=== PATIENT | female | born 1970 | race Caucasian/White ===

== ENCOUNTER 2023-12-13 14:35 | Emergency (ER) | payer OTHER, SELFPAY ==
[2023-12-13] VITALS (8 sets, daily range): BP systolic 105–137; BP diastolic 63–88
--- NOTE | 2023-12-13 15:29 | ED.GENMED ---
History of Present Illness
General
Chief Complaint: Musculo-Skeletal Complaint
Source: patient
Exam Limitations: none
Time Seen by Provider: 12/13/23 15:01
Nursing documentation reviewed up to this point in time: agreed with
Travel History
Have you had any contact with someone who has COVID-19?: No
Do you have any symptoms of coronavirus? Fever > 100 degrees, chills, cough, shortness of breath, sore throat, loss of taste or smell, muscle aches, or headache?: No
History of Present Illness
History of Present Illness:
Patient is a 53-year-old odwhy-daqu-lczlbzqh female who presents to the emergency department complaining of left upper extremity pain. Patient fell getting out of shower and may have passed out. Patient had surgery 4 days ago and had an
oophorectomy. Patient admits to not drinking that much and took a pain medication this morning. Patient denies chest pain, shortness of breath or palpitations. Patient denies striking her head or, neck or back pain. Patient states her left hand
went into spasm and she seemed to have numbness. Patient's had multiple surgeries on her left shoulder but she feels that is fine. Patient's abdomen is still sore from the surgery. Patient denies any lower extremity pain.
Past History
Past History
ED Past Medical History: Other (Kidney stones, anxiety/depression)
ED Past Surgical History: Gynecological and Orthopedic
Social History
Tobacco: Former smoker
Review of Systems
Review of Systems
All Other Systems: ROS reviewed and negative except as documented in HPI and ROS
Constitutional: Reports fatigue; Denies fever or chills
Respiratory: Reports no symptoms
Cardiac: Reports syncope (Questionable); Denies chest pain, diaphoresis or palpitations
ABD/GI: Reports abdominal pain; Denies nausea, vomiting, diarrhea or constipated
: Reports no symptoms
Musculoskeletal: Reports joint pain; Denies neck pain or back pain
Skin: Reports no symptoms
Neurological: Reports no symptoms
Endocrine: Reports no symptoms
Phy Exam
Physical Exam
Physical Exam:
Physical Exam
General: moderate distress distress, alert and appropriate, well nourished, well hydrated
HENT: Normocephalic and atraumatic, supple with no lymphadenopathy, no thyromegaly
Eyes: Clear sclera, conjuctiva without injection
Heart: Regular rhythm and rate. No S3, S4. No murmur.
Lungs: No respiratory distress, no stridor, lung sounds clear and equal bilaterally, chest wall symmetrical and nontender
Abdomen: Soft, mild tenderness without guarding or rebound in the area of surgical site, BS good
Neuro: Alert and oriented x 3, CN II - XII intact, no motor focality, no cerebellar dysfunction
Skin: no rash
Psychiatric: well kept. interactive and cooperative
Extremities: No edema, cyanosis. Good and equal peripheral pulses. Left wrist diffusely tender and increases with any range of motion. Neurovascularly and tendons intact. Well-healed surgical wounds of the left shoulder
Musculoskeletal: No cervical, thoracic or lumbar spine tenderness
Course
Orders/Labs/Results
Orders:
Orders
12/13/23 14:43
Wrist, Left 3 Views CR [CR Wrist - Left Min 3 Views] Urgent
Comment:
Reason For Exam: pain after a fall.
12/13/23 15:26
0.9% Sodium Chloride 1000 ml [Nss] 1,000 ml IV BOLUS
HYDROmorphone [Dilaudid] 1 mg IV NOW STA
Ondansetron Injectable [Zofran] 4 mg IV NOW STA
12/13/23 15:39
Univ. Wrist w/ Thumb Left-Tx ONCE
12/13/23 16:10
Propofol [Diprivan] 20 ml .ROUTE .STK-MED
12/13/23 16:38
Wrist, Left 2 Views CR [CR Wrist - Left Min 2 Views] Stat
Comment:
Reason For Exam: s/p reduction
Vital Signs
Initial and Last Documented VS:
Initial Vital Signs
Temp Pulse Resp BP Pulse Ox
98.7 F 77 1 137/70 99
12/13/23 14:38 12/13/23 14:38 12/13/23 14:38 12/13/23 14:38 12/13/23 14:38
Last Documented Vital Signs
Temp Pulse Resp BP Pulse Ox
98.2 F 80 18 108/88 99
12/13/23 16:45 12/13/23 16:45 12/13/23 16:45 12/13/23 16:45 12/13/23 16:45
Procedures
Moderate Sedation
ASA Risk Score: Class II
Chart and allergies reviewed: Yes
Consent for anesthesia obtained: Yes
Time out completed (validating right patient & procedure): Yes
History of difficult intubation: No
Airway free of obstruction: Yes
Patient has a gag reflex: Yes
Patient is able to open mouth: Yes
Patient has no dentures: Yes
Patient has no loose teeth: Yes
Medication administered by Provider during Moderate Sedation: IV Propofol (mg)
Total dose administered: 130
Time drug administered: 16:31
Start Time: 16:31
Stop Time: 16:48
Splinting/Sling Placement
Left Wrist:
Procedure completed by: barrera
Pre-splint extermity exam: neurovascular intact
Type of splint: sugar-tong
Splint material: fiberglass
Splint checked by provider?: Yes
Normal distal neurovascular exam?: Yes
Joint/Fracture Reduction
Left Wrist:
Indication for procedure:: displaced fracture
Procedure completed by: barrera
Consent form signed: Yes
Joint reduced: with anesthesia sedation
Anesthesia/sedation: Moderate sedation
Injury was: closed
Further treatement: needs further treatment
Capillary Refill: normal
Normal distal neurovascular exam?: Yes
*Radiology
Radiology exam reviewed: preliminary read by ED provider (Comminuted nondisplaced radial fracture)
*Pulse Oximetry
Patient hypoxic: no
*EKG
Interpreted by ED Provider?: NA
*Developer Advocate Interpretation
Rate: Developer Advocate- N/A
*Critical Care Note
Total Time (30-74mins, 75-104mins- exclusive of procedures): Not Applicable
ED Attending Note
-
Portions of this chart may have been created with voice recognition software.� Occasional wrong word or��sound alike� substitutions may have occurred due to the inherent limitations of voice recognition software.
Discharge Plan
Departure
Patient Disposition: Home (Routine Discharge)
Date of Disposition: 12/13/23
Time of Disposition: 16:55
Patient with high blood pressure during this ER visit?: No
Condition: Fair
Covid-19: Not Applicable
Discharge Problem:
Closed fracture of distal end of left radius
Instructions: Wrist Fracture (DC), Moderate Sedation in Adults (DC), Using Cold for Pain, Splint Care
Prescriptions:
New
hydromorphone [Dilaudid] 2 mg tablet
2 mg PO Q4H PRN (Reason: Pain) Qty: 14 0RF
No Action
clonazepam 0.5 MG tablet
1 mg PO HS
cyclobenzaprine 10 MG tablet
10 mg PO HS
acetaminophen [Tylenol Extra Strength] 500 MG tablet
1,000 mg PO Q6HPRN PRN (Reason: PAIN)
ibuprofen 200 MG tablet
600 - 800 mg PO PRN PRN (Reason: PAIN)
oxycodone 5 MG tablet
5 mg PO Q4HPRN PRN (Reason: PAIN)
bupropion HCl [Wellbutrin SR] 200 MG tablet sustained-release 12 hr
200 mg PO BID
Thc Cream
1 applic topical DAILY
loratadine-pseudoephedrine 240 MG/10 MG tablet extended release 24 hr
1 tab PO DAILY
nrzxtkrqkrtdf-GZ-yaakyqnnperlw [Mucinex Sinus-Max Cng-Pain(DM)] 1 EACH capsule
1 ea PO DAILY
Referrals:
Naveen Whelan MD [Family Provider] -
Claudio Butler MD [Active] - Call in 1-3 days for appt
Activity Restrictions/Additional Instructions:
Continue present medications and therapy
Interventions
Interventions:
*Risk Screen - Suicide Last Done: 12/13/23 15:03
*General Assessment Last Done: 12/13/23 15:03
*Neglect/Abuse Screening Last Done: 12/13/23 15:03
*ED COVID-19 Vaccine History Last Done: 12/13/23 15:03
ED-Musculoskeletal Assessment Last Done: 12/13/23 15:03
Discharge Date and Time
Print Language: MARSHALLESE
[2023-12-13] MEDS: NSS 1000 IV (15:34)
[2023-12-13] MEDS: ZOFRAN 4 MG IV (15:36)
[2023-12-13] MEDS: DILAUDID 1 MG IV ×2 (15:36→17:02)
== END 2023-12-13 17:40 | disposition home or self-care (01) ==
LOC: EMR 14:35
PROVIDERS: EMERGENCY PHYSICIAN Emergency Medicine; FAMILY PHYSICIAN Family Medicine
DX: S52.592A Other fractures of lower end of left radius, initial encounter for closed fracture (principal); W18.2XXA Fall in (into) shower or empty bathtub, initial encounter; Y93.E1 Activity, personal bathing and showering; Z87.442 Personal history of urinary calculi; Z87.891 Personal history of nicotine dependence
CPT/HCPCS: 25605; 99285; 99152; 96374; 96375; 96361; 96376; 73100; 73110

== ENCOUNTER 2023-12-18 02:08 | Emergency (ER) | payer OTHER, SELFPAY ==
[2023-12-18 02:14] VITALS: BP 144/90
[2023-12-18] MEDS: DILAUDID 1 MG IV ×2 (02:29→03:55)
--- NOTE | 2023-12-18 02:35 | ED.GENMED ---
History of Present Illness
General
Chief Complaint: Post Operative Problem(s)
Source: patient
Exam Limitations: none
Time Seen by Provider: 12/18/23 02:20
Travel History
Have you had any contact with someone who has COVID-19?: No
Do you have any symptoms of coronavirus? Fever > 100 degrees, chills, cough, shortness of breath, sore throat, loss of taste or smell, muscle aches, or headache?: No
History of Present Illness
History of Present Illness:
See MDM
Past History
Past History
ED Past Medical History: Other (Kidney stones, anxiety/depression)
ED Past Surgical History: Gynecological and Orthopedic
Social History
Tobacco: Former smoker
Alcohol: None
Phy Exam
Physical Exam
Physical Exam:
See MDM
Course
Orders/Labs/Results
Orders:
Orders
12/18/23 02:25
HYDROmorphone [Dilaudid] 1 mg IV NOW STA
12/18/23 03:52
HYDROmorphone [Dilaudid] 1 mg IV NOW STA
Ketorolac [Toradol] 30 mg IV NOW STA
Vital Signs
Initial and Last Documented VS:
Initial Vital Signs
Temp Pulse Resp BP Pulse Ox
98.5 F 106 26 144/90 96
12/18/23 02:14 12/18/23 02:14 12/18/23 02:14 12/18/23 02:14 12/18/23 02:14
Last Documented Vital Signs
Temp Pulse Resp BP Pulse Ox
98.5 F 106 26 144/90 96
12/18/23 02:14 12/18/23 02:14 12/18/23 02:14 12/18/23 02:14 12/18/23 02:14
MDM/Problems Addressed
Differential Diagnosis Includes:
HPI and MDM Narrative:
53-year-old female presenting with worsening left arm pain. Patient had wrist fracture repair yesterday. Patient states the nerve block is wearing off. She took her Dilaudid medicine at home with no relief. She is complaining of uncontrolled pain
When examined the patient, there was distal and proximal swelling to the splint. I removed the splint and the pain immediately improved. The hand remains neurovascularly intact will provide pain medicine and resplint more loosely
Physical exam
General: Mildly uncomfortable
HEENT: protecting airway
Neck: appears supple
CV: No evidence of cyanosis
Resp: No accessory muscle use
Abd: Non-distended
Extremities: Left hand surgical incisions are clean and intact. Distal extremity neurovascular intact. Cap refill is in 2 seconds.
Neuro: alert
Psych: Normal affect
Skin: Intact
Problems Addressed including Acute and Chronic Conditions affecting care:
1. Postsurgical pain
Acuity: acute
Prognosis: stable
Details: Likely in the setting of postsurgical swelling. The splint was reapplied more loosely which improved pain drastically
Updates
After Dilaudid, patient states the pain is starting to recur. Will give another dose in addition to Toradol. She feels comfortable going home and will call her surgeon in the morning
Differential Diagnosis (but not limited to): Postsurgical pain, edema
Testing considered: Repeat x-ray but she denies trauma
Drug therapy (if applicable): OTC meds, please see d/c instruction regarding Rx drugs
Amount and/or Complexity of Data Reviewed
Clinical info obtained from: Patient
External data reviewed: N/A
Labs I independently reviewed (but not limited to): N/A
Radiology: N/A
Pulse Ox: not hypoxic
EKG independently reviewed: N/A
Grants Analyst: N/A
Critical Care: N/A
Risk of Complication:
Social Determinants of health: Good social support
Discussed with other providers: N/A
Escalation of Care includes Admit/Obs: After being observed in the Emergency Department, pt stable for discharge.
Occasional wrong word or 'sound a like' substitutions may have occurred due to the inherent limitations of voice recognition software. Read the chart carefully and recognize, using context, where substitutions have occurred.
*Critical Care Note
Total Time (30-74mins, 75-104mins- exclusive of procedures): Not Applicable
ED Attending Note
-
Portions of this chart may have been created with voice recognition software.� Occasional wrong word or��sound alike� substitutions may have occurred due to the inherent limitations of voice recognition software.
Discharge Plan
Departure
Patient Disposition: Home (Routine Discharge)
Date of Disposition: 12/18/23
Time of Disposition: 03:53
Patient with high blood pressure during this ER visit?: Yes
Discharge Problem:
Post-operative pain
Instructions: Postoperative Pain (DC), BLOOD PRESSURE
Prescriptions:
No Action
clonazepam 0.5 MG tablet
1 mg PO HS
cyclobenzaprine 10 MG tablet
10 mg PO HS
acetaminophen [Tylenol Extra Strength] 500 MG tablet
1,000 mg PO Q6HPRN PRN (Reason: PAIN)
ibuprofen 200 MG tablet
600 - 800 mg PO PRN PRN (Reason: PAIN)
oxycodone 5 MG tablet
5 mg PO Q4HPRN PRN (Reason: PAIN)
bupropion HCl [Wellbutrin SR] 200 MG tablet sustained-release 12 hr
200 mg PO BID
Thc Cream
1 applic topical DAILY
loratadine-pseudoephedrine 240 MG/10 MG tablet extended release 24 hr
1 tab PO DAILY
implzefghdvas-EA-vmltbqmyyqgvq [Mucinex Sinus-Max Cng-Pain(DM)] 1 EACH capsule
1 ea PO DAILY
hydromorphone [Dilaudid] 2 mg tablet
2 mg PO Q4H PRN (Reason: Pain) Qty: 14 0RF
hydromorphone 4 mg tablet
2 - 4 mg PO Q6H PRN (Reason: Pain) Qty: 10 0RF
Referrals:
Ceci Jameson MD [Family Provider] -
Activity Restrictions/Additional Instructions:
Please return for any worsening symptoms.
You may return at any time if you have further concerns.
Please call your surgeon tomorrow and explain your symptoms.
Thank you for choosing [facility].
Interventions
Interventions:
*Risk Screen - Suicide Last Done: 12/18/23 02:14
*General Assessment Last Done: 12/18/23 02:14
*Neglect/Abuse Screening Last Done: 12/18/23 02:14
ED- Fall Risk Assessment Last Done: 12/18/23 02:14
*ED COVID-19 Vaccine History Last Done: 12/18/23 02:14
ED-Skin Assessment Last Done: 12/18/23 02:37
Discharge Date and Time
Print Language: ISRAELI
[2023-12-18] MEDS: TORADOL 30 MG IV (03:55)
== END 2023-12-18 04:02 | disposition home or self-care (01) ==
LOC: EMR 02:08
PROVIDERS: EMERGENCY PHYSICIAN Student in an Organized Health Care Education/Training Program; FAMILY PHYSICIAN Family Medicine
DX: G89.18 Other acute postprocedural pain (principal); M79.602 Pain in left arm; M25.432 Effusion, left wrist; R03.0 Elevated blood-pressure reading, without diagnosis of hypertension; F41.9 Anxiety disorder, unspecified; F32.A Depression, unspecified; Z87.891 Personal history of nicotine dependence; Z87.442 Personal history of urinary calculi; Z88.1 Allergy status to other antibiotic agents; Z91.048 Other nonmedicinal substance allergy status
CPT/HCPCS: 99284; 96374; 96375; 96376

== ENCOUNTER 2025-02-07 21:58 | Inpatient (IN) | payer OTHER, SELFPAY ==
[2025-02-07] VITALS (8 sets, daily range): BP systolic 101–136; BP diastolic 51–82; BMI 22.6; BMI 21.7
--- NOTE | 2025-02-07 16:14 | ED.GENMED ---
History of Present Illness
General
Chief Complaint: Flank Pain
Source: patient and spouse
Exam Limitations: none
Time Seen by Provider: 02/07/25 16:05
History of Present Illness
History of Present Illness:
54-year-old female relatively sudden onset of left flank pain 3 to 4 hours ago. Some nausea. History of kidney stones. Some ongoing recurring urinary symptoms and recurring UTI. Last on antibiotics 2 weeks ago. Currently has no dysuria or
frequency but does note foul-smelling urine. No fever or chills
Past History
Past History
ED Past Medical History: Other (Kidney stones, anxiety/depression)
ED Past Surgical History: , Gynecological and Orthopedic
Social History
Tobacco: Former smoker
Alcohol: None
Review of Systems
Review of Systems
All Other Systems: Not applicable
Constitutional: Denies fever or chills
Respiratory: Reports no symptoms
ABD/GI: Reports no symptoms
Phy Exam
Physical Exam
Physical Exam:
GENERAL: Alert and oriented in no apparent distress
EYE: Orbits normal.
NECK: Supple
CARDIAC: Regular rate and rhythm without any obvious murmurs.
LUNGS: Clear breath sounds,normal
ABDOMEN: Soft, without focal tenderness or distention. No CVA tenderness
NEUROLOGICAL: Alert and oriented , grossly non-focal
SKIN: Warm and dry, no rash or lesion, no discoloration, skin intact.
MUSCULOSKELETAL: No edema,no deformity.Good color
PSYCH: Normal and appropriate interaction..
Course
Orders/Labs/Results
Orders:
Orders
02/07/25 16:12
CT Abd/pel Without Iv Or Oral Urgent
Comment:
Reason For Exam: Left flank pain
IV Insert/Care/Rem.- Treatment PRN
0.9% Sodium Chloride 500 ml [Nss] 500 ml IV BOLUS
Ketorolac [Toradol] 15 mg IV NOW STA
02/07/25 16:22
Basic Metabolic Panel Urgent
Complete Blood Count/With Diff Urgent
Urinalysis Reflex To Culture Urgent
Date Specimen was Collected: 02/07/25
Time Specimen was Collected: 16:18
Urine Microscopic Reflex Cult Urgent
Urine Culture Urgent
DONTA Source: U
Specimen Description:
Date Specimen was Collected: 02/07/25
Time Specimen was Collected: 16:18
02/07/25 18:30
Cefepime HCl [Maxipime] 2,000 mg IV NOW STA
HYDROmorphone [Dilaudid] 0.5 mg IV NOW STA
Abnormal Lab Results
02/07/25
16:22
RBC 3.60 L 10^6/uL
(4.20-5.40)
Hgb 11.2 L g/dL
(12.0-16.0)
Hct 33.5 L %
(37.0-47.0)
MCH 31.1 H pg
(27.0-31.0)
Abs Immat Gran (auto) 0.1 H 10^3/uL
(0-0.05)
Absolute Neuts (auto) 7.4 H 10^3/uL
(1.4-6.5)
Absolute Lymphs (auto) 1.1 L 10^3/uL
(1.2-3.4)
Neutrophils % 79.2 H %
(42.2-75.2)
Lymphocytes % 12.3 L %
(20.5-51.1)
BUN 21 H mg/dl
(7-17)
Glucose 100 H mg/dl
(70-99)
Ur Occult Blood Reflex 3+ A
(Negative)
Leukocyte Esterase Rfl 3+ A
(Negative)
Urine RBC 3-6 A /HPF
(0-2)
Urine Bacteria (Reflex) Many A
(Negative)
Urine Albumin (Reflex) 2+ A
(Neg - Trace)
02/07/25 16:22
02/07/25 16:22
Vital Signs
Initial and Last Documented VS:
Initial Vital Signs
Temp Pulse Resp BP Pulse Ox
98.6 F 84 17 136/82 99
02/07/25 15:49 02/07/25 15:49 02/07/25 15:49 02/07/25 15:49 02/07/25 15:49
Last Documented Vital Signs
Temp Pulse Resp BP Pulse Ox
98.6 F 84 17 136/82 99
02/07/25 15:49 02/07/25 15:49 02/07/25 15:49 02/07/25 15:49 02/07/25 15:49
MDM/Problems Addressed
Differential Diagnosis Includes:
Differential would include kidney stone, early pyelonephritis, kidney stone plus pyelonephritis, diverticulitis, nonspecific. Workup in progress
*Critical Care Note
Total Time (30-74mins, 75-104mins- exclusive of procedures): Not Applicable
Data Reviewed
Review of Other/Old Records Reveals: Labs, Records, Radiology Studies and Testing
Update Note
Update Note:
0... Discussed with urology. With possible secondary infection referred to hospitalist for admission. Urology aware of CT findings and urine findings
ED Attending Note
-
Portions of this chart may have been created with voice recognition software.� Occasional wrong word or��sound alike� substitutions may have occurred due to the inherent limitations of voice recognition software.
Discharge Plan
Departure
Patient Disposition: Admit
Date of Disposition: 02/07/25
Time of Disposition: 18:58
Presentation/result/management discussed w/ accepting /DO: Norberto
Discharge Problem:
9 mm obstructing left ureteral kidney st, Possible secondary UTI
Prescriptions:
No Action
clonazepam 0.5 MG tablet
1 mg PO HS
cyclobenzaprine 10 MG tablet
10 mg PO HS
acetaminophen [Tylenol Extra Strength] 500 MG tablet
1,000 mg PO Q6HPRN PRN (Reason: PAIN)
ibuprofen 200 MG tablet
600 - 800 mg PO PRN PRN (Reason: PAIN)
oxycodone 5 MG tablet
5 mg PO Q4HPRN PRN (Reason: PAIN)
bupropion HCl [Wellbutrin SR] 200 MG tablet sustained-release 12 hr
200 mg PO BID
Thc Cream
1 applic topical DAILY
loratadine-pseudoephedrine 240 MG/10 MG tablet extended release 24 hr
1 tab PO DAILY
kcgruikimgujv-TL-uyxnfljjevlku [Mucinex Sinus-Max Cng-Pain(DM)] 1 EACH capsule
1 ea PO DAILY
hydromorphone [Dilaudid] 2 mg tablet
2 mg PO Q4H PRN (Reason: Pain) Qty: 14 0RF
hydromorphone 4 mg tablet
2 - 4 mg PO Q6H PRN (Reason: Pain) Qty: 10 0RF
Referrals:
Ceci Jameson MD [Family Provider]
Interventions
Interventions:
*Risk Screen - Suicide Last Done: 02/07/25 15:50
*General Assessment Last Done: 02/07/25 15:50
*Neglect/Abuse Screening Last Done: 02/07/25 15:50
*ED COVID-19 Vaccine History Last Done: 02/07/25 15:50
MF-Ofrcun-Hymrdnesqv Assessment Last Done: 02/07/25 16:36
Discharge Date and Time
Print Language: BURKINAN
[2025-02-07] MEDS: TORADOL 15 MG IV ×2 (16:23→21:21)
[2025-02-07] MEDS: NSS 500 IV (16:24)
[2025-02-07 16:33] LABS: Urine Albumin 2+ (Neg - Trace); Urine Bilirubin Negative (Negative); Urine Character Clear (Clear); Urine Color Yellow; Urine Glucose Negative (Negative); Urine Ketone Negative (Negative); Urine Leukocyte 3+ (Negative); Urine Nitrite Negative (Negative); Urine Occult Blood 3+ (Negative); Urine Specific Gravity 1.015 (<1.030); Urine Urobilinogen Negative (Neg - 1+)
[2025-02-07 16:40] LABS: % Basophils 0.3 % (0-2); % Eosinophils 1.2 % (0-6); % Immature Granulocytes 0.5 % (0-0.5); % Lymphocytes 12.3 % (20.5-51.1); % Monocytes 6.5 % (1.7-9.3); % Neutrophils 79.2 % (42.2-75.2); Absolute Eosinophils 0.1 10^3/uL (0-0.7); Absolute Immature Granulocytes 0.1 10^3/uL (0-0.05); Absolute Lymphocytes 1.1 10^3/uL (1.2-3.4); Absolute Monocytes 0.6 10^3/uL (0.1-0.6); Absolute Neutrophils 7.4 10^3/uL (1.4-6.5); Hematocrit 33.5 % (37.0-47.0); Hemoglobin 11.2 g/dL (12.0-16.0); Mean Corp Hgb Conc. 33.4 g/dL (33.0-37.0); Mean Corpuscular Hgb 31.1 pg (27.0-31.0); Mean Corpuscular Volume 93.1 fL (81.0-99.0); Mean Platelet Volume 8.8 fL (7.4-10.4); Nucleated Red Blood Cells % 0 %; Platelet Count 286 10^3/uL (130-400); Red Cell Dist. Width 13.1 % (11.5-14.5); White Blood Cell Count 9.3 10^3/uL (4.8-10.8)
[2025-02-07 16:41] LABS: Blood Urea Nitrogen 21 mg/dl (7-17); Calcium 9.7 mg/dl (8.4-10.2); Carbon Dioxide 26 mmol/L (22-30); Chloride 107 mmol/L (98-107); Glucose 100 mg/dl (70-99); Potassium 4.2 mmol/L (3.5-5.1); Sodium 137 mmol/L (135-145); eGFR > 60.00
[2025-02-07 17:48] LABS: Urine Bacteria Many (Negative); Urine Mucus Many; Urine Triple Phosphate Crystal Present
[2025-02-07] MEDS: DILAUDID 0.5 MG IV (18:38)
[2025-02-07] MEDS: MAXIPIME 2000 MG IV (18:39)
[2025-02-07] MEDS: PROTONIX IV 40 MG IV (19:29)
--- NOTE | 2025-02-07 19:38 | CONS.URO ---
Consultation
-
Date/Time Consultation Requested: 02/07/2025 190
Date/Time Consultation Performed: 02/07/2025 193
Requesting Provider: ED
Performing Provider: Norberto
Reason for Consultation: Left Ureteral Stone
Medical History
History of Present Illness
ED note: '54-year-old female relatively sudden onset of left flank pain 3 to 4 hours ago. Some nausea. History of kidney stones. Some ongoing recurring urinary symptoms and recurring UTI. Last on antibiotics 2 weeks ago. Currently has no
dysuria or frequency but does note foul-smelling urine. No fever or chills'
long-term patient of Dr corbin at [facility]
prior h/o urteroscopy for stone
Past Medical History
Past Medical History: Psychiatric (anxiety/depression; recurrent UTI's, kidney stones)
Past Surgical History: Gynocological and Urological
Social History
Tobacco: Non-smoker
Drug: None
Personal:
Living: With Family
Family History
Family History: Reviewed & Not Pertinent
Allergies/Home Medications
Allergies
Allergy/AdvReac Type Severity Reaction Status Date / Time
amoxicillin Allergy rash/hives Verified 02/07/25 15:49
seasonal Allergy nasal Uncoded 02/07/25 15:49
congestion
Home Medications
�Medication �Instructions �Recorded �Confirmed �Type
bupropion HCl 200 mg tablet,12 hr 200 mg PO BID 02/07/25 02/07/25 History
sustained-release
clonazepam 0.5 mg tablet 1 mg PO HS 02/07/25 02/07/25 History
cranberry 2 tab PO HS 02/07/25 02/07/25 History
diphenhydramine 25 1 tab PO HS 02/07/25 02/07/25 History
mg-acetaminophen 500 mg tablet
(Tylenol PM Extra Strength)
estradiol 0.01% (0.1 mg/gram) 1 applic vaginal SUWE@2200 02/07/25 02/07/25 History
vaginal cream
finasteride 5 mg tablet 5 mg PO HS 02/07/25 02/07/25 History
methenamine-m.blue-sod 1 tab PO BIDPRN PRN urinary 02/07/25 02/07/25 History
phos-p.august-hyosc 81.6 mg-10.8 discomfort
mg-40.8 mg tablet (Uretron D-S)
nortriptyline 10 mg capsule 10 mg PO HS 02/07/25 02/07/25 History
Physical Exam
Vital Signs
Vital Signs
Temp Pulse Resp BP Pulse Ox
98.6 F 84 17 126/73 99
02/07/25 15:49 02/07/25 15:49 02/07/25 15:49 02/07/25 19:00 02/07/25 15:49
Lab / Testing Results
Laboratory Results
02/07/25 16:22
02/07/25 16:22
Physical Exam
adult female on ED gurfort supply
General: No Apparent Distress and Comfortable
HEENT: Normocephalic
Respiratory: Non Labored Respirations
GI: Soft, Non Tender and Non Distended
Genito-urinary: No Costovertebral Tend
Skin: Warm
Neuro: Awake, Alert and Oriented
Psych: Calm and Intact Judgement
Assessment / Plan
-
Left Ureteral Stone: 9 mm, proximal
possible UTI
Rec: empiric antibiosis
posted for OR in AM -- consent signed in presence of at bedside
Data Reviewed
-
CT Scan: Image personally visualized and interpreted
Lab Data: Labs Reviewed
Old Records: Reviewed
[2025-02-07] MEDS: LEVAQUIN 500 MG PO (20:19)
[2025-02-07] MEDS: LOVENOX 40 MG SC (20:20)
[2025-02-07] MEDS: FLOMAX 0.4 MG PO (21:20)
[2025-02-08] VITALS (9 sets, daily range): BP systolic 97–134; BP diastolic 50–87
--- NOTE | 2025-02-08 00:02 | PTCARENOTE ---
Pt arrived to room 419-02. Pt ambulated from stretcher to bed. Pt AAOx3, VSS. Pt oriented to room, call coles placed within reach.
[2025-02-08] MEDS: WELLBUTRIN SR (12 hour sustained release) 200 MG PO ×2 (00:08→10:10)
[2025-02-08] MEDS: PAMELOR 10 MG PO (00:08)
[2025-02-08] MEDS: KLONOPIN 1 MG PO (00:09)
[2025-02-08] MEDS: NORMOSOL-R/PLASMALYTE-A 1000 IV (00:09)
[2025-02-08] MEDS: TORADOL 15 MG IV ×2 (04:25→09:41)
[2025-02-08] MEDS: TYLENOL 650 MG PO (06:16)
[2025-02-08] MEDS: ZOFRAN 4 MG IV (06:16)
--- NOTE | 2025-02-08 06:35 | PTCARENOTE ---
There was a [employer] Downtime on 02/08/2025 from 0100 to 02/08/2025 at 0415. Downtime documentation of patient's care, including medication administrations, has been reconciled in the electronic record per guidelines. Refer to the
patient's paper chart under the miscellaneous tab to see printed paper medication records and downtime forms.
--- NOTE | 2025-02-08 08:53 | W.PN.URO.CBU ---
Today's Communication / Plan
-
will discharge home on po abx
Assessment / Plan
-
clinically stable post-op
Diagnosis
-
Date of Service: February 08, 2025
-
Patient Diagnosis: LEft Ureteral Stone, suspected struvite, plus chronic UTIs
s/p left ureteroscopy, laser lithotripsy, stenting
Post Op Day: 0
Subjective
-
feels better post-op
Objective
-
Vital Signs
Temp Pulse Resp BP Pulse Ox
98.3 F 90 15 106/69 97
02/08/25 08:42 02/08/25 08:45 02/08/25 08:45 02/08/25 08:35 02/08/25 08:45
Intake and Output
02/07/25 02/08/25 02/09/25
06:59 06:59 06:59
Intake Total 300 / 300
Balance 300 / 300
Intake:
IV fluids (Total) 300 / 300
Normosol 300 / 300
Other:
Number of approximated MODERATE 2
amounts of urine
Laboratory Results
02/07/25 16:22
02/07/25 16:22
Physical Exam
-
General - well developed, well nourished, no acute distress
--- NOTE | 2025-02-08 09:00 | W.DS.TRANS ---
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
-
Discharge Instructions:
Discharge Diagnosis/Procedures Left Ureteral Stone s/p ureteroscopy, laser
lithotripsy, stenting
Chronic UTI -- suspected due to struvite stone
Diet No restrictions
Activity No restrictions
Driving Restrictions No driving for 24 hours
Bathing Restrictions None
Instructions:
Stand-Alone Forms:
Changes to Home Medications: No
Discharge Medications:
DC Medications w/original date entered in [employer]
bupropion HCl 200 mg tablet,12 hr sustained-release 200 mg PO BID 02/07/25
clonazepam 0.5 mg tablet 1 mg PO HS 02/07/25
cranberry 2 tab PO HS 02/07/25
diphenhydramine 25 mg-acetaminophen 500 mg tablet (Tylenol PM Extra Strength) 1 tab PO HS 02/07/25
estradiol 0.01% (0.1 mg/gram) vaginal cream 1 applic vaginal SUWE@2200 02/07/25
finasteride 5 mg tablet 5 mg PO HS 02/07/25
methenamine-m.blue-sod phos-p.august-hyosc 81.6 mg-10.8 mg-40.8 mg tablet (Uretron D-S) 1 tab PO BIDPRN PRN urinary discomfort 02/07/25
nortriptyline 10 mg capsule 10 mg PO HS 02/07/25
cefdinir 300 mg capsule 300 mg PO Q12H #30 caps 02/08/25
Home Medication Changes
Pending Results: Yes (urine culture; stone composition)
--- NOTE | 2025-02-08 10:20 | CM ---
CM reviewed chart, patient seen bedside, initial assessment completed. Patient resides with her and two children in a multiple story home, about five steps to enter. Patient is independent with ADLs/IADLs, denies use of DME, reports VN in
past when having home IV antibiotics, denies SNF history. Patient PCP Ceci Jameson, [facility], confirms prescription coverage. Patient denies needs from CM, confirms transportation home from her daughter. CM will continue to
follow for all discharge planning needs.
Plan; home no needs
== END 2025-02-08 14:48 | disposition home or self-care (01) | DRG 660 ==
LOC: 4 WEST ACU 21:58
PROVIDERS: Obstetrics & Gynecology; ADMITTING PHYSICIAN Specialist; EMERGENCY PHYSICIAN Emergency Medicine; FAMILY PHYSICIAN Family Medicine
PROC: 0TC78ZZ Extirpation of Matter from Left Ureter, Via Natural or Artificial Opening Endoscopic (ICD-10-PCS; 2025-02-08)
PROC: 0T778DZ Dilation of Left Ureter with Intraluminal Device, Via Natural or Artificial Opening Endoscopic (ICD-10-PCS; 2025-02-08)
DX: N20.1 Calculus of ureter (principal); N39.0 Urinary tract infection, site not specified; Z87.442 Personal history of urinary calculi; Z87.440 Personal history of urinary (tract) infections; F32.A Depression, unspecified; F41.9 Anxiety disorder, unspecified; Z88.0 Allergy status to penicillin; Z87.891 Personal history of nicotine dependence
CPT/HCPCS: 74018; 74176; 76000; 80048; 81003; 81015; 82365; 85025; 87086; 96361; 96374; 96375; 99284; C1894; C2617